=== PATIENT | female | born 1940 | race Caucasian/White ===

== ENCOUNTER → 2016-09-01 | Outpatient (CLI) | payer BC ==
--- NOTE | 2016-09-01 14:52 | MA ---
Screening Digital Mammogram With Tomosynthesis and iCAD Indication: Routine screening. Technique: Standard digital CC projections were obtained. Digital breast tomosynthesis was performed in the MLO projection with reconstruction at 1.0-mm slice thickness. Composite MLO views were recons tructed. This examination was processed by the iCAD computer-aided detection system. Comparison: May 2014, May 2013 and May 2012. Breast density: Type B. Findings: CAD was reviewed. No suspicious microcalcifications, mass, or architectural distortion. Impression: Negative mammogram BI-RADS: 1 - Negative Recommendation: Routine screening is recommended in one year. [facility] will send a result letter to the patient. Negative mammography should not preclude additional workup of a clinically suspicious finding. The patient's information is entered into a reminder system with a target due date for her next mammo gram.
== END ==
LOC: FIMAGING 11:25
DX: Z12.31 Encounter for screening mammogram for malignant neoplasm of breast (principal)
CPT/HCPCS: G0202

== ENCOUNTER 2017-08-12 06:00 | Observation (INO) | payer BC, OTHER ==
[~2017-08-12 06:00] MED LIST: ROPIVACAINE 0.2% 80 MG, EPINEPHrine 0.2 MG, KETOROLAC TROMETHAMINE 30 MG in SYRINGE 0 ML IU ONE; TRANEXAMIC ACID 3,000 MG in NS 50 ML IRR ONE
[2017-08-12] MEDS ORDERED: FAMOTIDINE 20 MG TAB PO ONE (06:09)
[2017-08-12] MEDS ORDERED: DEXAMETHASONE 4 MG/ML VIAL IVP ONE (06:09)
[2017-08-12] MEDS ORDERED: ceFAZolin 2 GM/SWFI 2 GM/20 ML SYR IVP ONE (06:09)
[2017-08-12] MEDS ORDERED: ACETAMINOPHEN 325 MG TAB PO ONE (06:09)
[2017-08-12] MEDS ORDERED: LR 1,000 ML IV ONE (06:11)
[2017-08-12] MEDS ORDERED: LIDOCAINE 1% 2 ML INJ ID PRN (06:11)
[2017-08-12] MEDS ORDERED: TRANEXAMIC ACID 3,000 MG/50 ML BAG IRR ONE (06:41)
[2017-08-12] MEDS ORDERED: VANCOMYCIN 1 GM VIAL ONE (06:41)
--- NOTE | 2017-08-12 06:57 | PDANEPAE ---
ANE History of Present Illness Knee OA ANE Past Medical History - Cardiovascular History Hx Hypertension: Yes Hx Arrhythmias: No Hx Chest Pain: No Hx Coronary Artery / Peripheral Vascular Disease: No Hx CHF / Valvular Disease: No Hx Palpitations: No Cardiovascular History Comment: stress related hypertension. - Pulmonary History Hx COPD: No Hx Asthma/Reactive Airway Disease: No Hx Recent Upper Respiratory Infection: No Hx Oxygen in Use at Home: No Hx Sleep Apnea: No Sleep Apnea Screening Result - Last Documented: Negative - Neurologic History Hx Cerebrovascular Accident: No Hx Seizures: No Hx Dementia: No - Endocrine History Hx Diabetes: No - Renal History Hx Renal Disorders: No - Liver History Hx Hepatic Disorders: No - Neurological & Psychiatric Hx Hx Neurological and Psychiatric Disorders: No - Cancer History Hx Cancer: No - Congenital Disorder History Hx Congenital Disorders: No - GI History Hx Gastrointestinal Disorders: No - Other Health History Other Health History: none - Chronic Pain History Chronic Pain: No - Surgical History Prior Surgeries: none ANE Review of Systems Review of Systems: - Exercise capacity METS (RN): 5 METS ANE Patient History - Allergies Allergies/Adverse Reactions: No Known Allergies Allergy (Verified 08/12/17 06:21) - Home Medications Home medications: home medication list seen and reviewed Home Medications: Acetaminophen/ASA/Caffeine [Excedrin Tablet (*)] 2 each PO PRN PRN 04/12/16 [ Last Taken 08/03/17] Cholecalciferol Vit D3 [Vitamin D3 2000 units tab (OTC)] 2,000 units PO DAILY [Last Taken 07/29/17] Metoprolol Tartrate [Lopressor 25 mg (*)] 12.5 mg PO HS 04/12/16 [Last Taken 22:00] Calcium Carbonate [Tums 500MG (*)] 1,000 mg PO DAILY PRN 07/09/17 [Last Taken ] Ibuprofen [Advil] 400 mg PO DAILY PRN 07/09/17 [Last Taken 08/05/17] Vit C/Vit E/Lutein/Min/[place]-3 [Ocuvite Softgel] 2 each PO DAILY 07/09/17 [Last Taken 07/29/17] diphenhydrAMINE HCL [Benadryl] 25 mg PO DAILY PRN 07/09/17 [Last Taken 08/05/17] - NPO status NPO Since - Liquids (Date): 08/12/17 NPO Since - Liquids (Time): 04:00 NPO Since - Solids (Date): 08/11/17 NPO Since - Solids (Time): 20:00 - Anes Hx Anes Hx: no prior problems - Smoking Hx Smoking Status: Never smoked - Family Anes Hx Family Hx Anesthesia Complications: none ANE Labs/Vital Signs - Vital Signs Blood Pressure: 146/81 Heart Rate: 66 Respiratory Rate: 16 O2 Sat (%): 94 Height: 162.56 cm Weight: 72.575 kg ANE Physical Exam - Airway Neck exam: FROM Mallampati Score: Class 2 Mouth exam: normal dental/mouth exam - Pulmonary Pulmonary: no respiratory distress - Cardiovascular Cardiovascular: regular rate and rhythym - ASA Status ASA Status: II ANE Anesthesia Plan Anesthesia Plan: spinal Regional Anesthesia: adductor canal FNB (Plan block in PACU)
[2017-08-12] MEDS ORDERED: MIDAZOLAM 2 MG/2 ML VIAL ONE (06:58)
[2017-08-12] MEDS ORDERED: MIDAZOLAM 2 MG/2 ML VIAL IVP ONE (06:58)
[2017-08-12] MEDS ORDERED: PROPOFOL/EMULSION 500 MG/50 ML BOTTLE IV ONE (07:06)
--- NOTE | 2017-08-12 07:08 | PDHPUP ---
History & Physical Update H&P update statement: This history and physical update is based on an assessment of the patient which was completed after admission or registration (within 24 hours), but prior to the surgery/procedure. H&P update: H&P reviewed & patient examined, no change in patient's condition since H&P completed
[2017-08-12] MEDS ORDERED: LACTULOSE 20 GM/30 ML UDCUP PO PRN (07:22)
[2017-08-12] MEDS ORDERED: POLYETHYLENE GLYCOL 3350 17 GM PKT PO PRN (07:22)
[2017-08-12] MEDS ORDERED: PROMETHAZINE HCL 25 MG SUPPR PR PRN (07:22)
[2017-08-12] MEDS ORDERED: ONDANSETRON DISINTEGRATING 4 MG TAB PO PRN (07:22)
[2017-08-12] MEDS ORDERED: TEMAZEPAM 15 MG CAP PO PRN (07:22)
[2017-08-12] MEDS ORDERED: MAGNESIUM HYDROXIDE 30 ML UDCUP PO PRN (07:22)
[2017-08-12] MEDS ORDERED: diphenhydrAMINE 25 MG CAP PO PRN (07:22)
[2017-08-12] MEDS ORDERED: DIPHENOXYLATE/ATROPINE LOMOTIL 1 TAB PO PRN (07:22)
[2017-08-12] MEDS ORDERED: PROMETHAZINE HCL 25 MG/ML INJ IVP PRN (07:22)
[2017-08-12] MEDS ORDERED: METOCLOPRAMIDE 10 MG/2 ML VIAL IVP PRN (07:22)
[2017-08-12] MEDS ORDERED: ONDANSETRON 4 MG/2 ML VIAL IVP PRN ×2 (07:22→08:28)
[2017-08-12] MEDS ORDERED: BISACODYL 10 MG SUPP PR PRN (07:22)
[2017-08-12] MEDS ORDERED: LR 1,000 ML IV SCH (07:30)
[2017-08-12] MEDS ORDERED: ROPIVACAINE HCL 150 MG/30 ML INJ ONE (07:44)
--- NOTE | 2017-08-12 08:27 | POSTOPPROG ---
Post Op Note Date of Operation: 08/12/17 Surgeon: Baudilio Hardin Quality System Manager: anmol hardin Anesthesiologist: dr. figueroa Anesthesia: Spinal, Other (Specify) (adductor canal block) Pre-op Diagnosis: Left knee OA Post-op Diagnosis: same Indication: left knee pain due to OA that failed conservative measures Procedure: L TKA Findings: severe PF OA Inf/Abcess present in the surg proc area at time of surgery?: No EBL: 50-100
[2017-08-12] MEDS ORDERED: NALOXONE HCL 0.4 MG/ML INJ IVP PRN (08:28)
[2017-08-12] MEDS ORDERED: HYDROmorphONE/DILAUDID 1 MG/ML INJ IVP PRN (08:28)
[2017-08-12] MEDS ORDERED: fentaNYL 100 MCG/2 ML INJ IVP PRN (08:28)
--- NOTE | 2017-08-12 08:47 | POSTANESTH ---
Post Anesthetic Evaluation Cardiovascular Status: Normal, Stable Respiratory Status: Normal, Stable Level of Consciousness/Mental Status: Can Participate in Eval Pain Control: Adequate, Prn Tx Ordered Nausea/Vomiting Control: Adequate, Prn Tx Ordered Complications Possibly Related to Anesthesia: None Noted (Adductor cannal block done in recovery without diff.)
[2017-08-12] MEDS: SENNOSIDES/DOCUSATE SODIUM TAB PO SCH ×2 (09:00→21:20)
[2017-08-12] MEDS: ASPIRIN 81 MG CHEWABLE TAB PO SCH ×2 (09:00→21:20)
[2017-08-12] MEDS: ACETAMINOPHEN 325 MG TAB PO SCH ×3 (11:32→23:38)
[2017-08-12] MEDS: oxyCODONE IR 5 MG TAB PO PRN ×3 (12:50→21:20)
[2017-08-12] MEDS: CYCLOBENZAPRINE 10 MG TAB PO PRN ×2 (12:50→21:20)
[2017-08-12] MEDS: ceFAZolin 2 GM/DEXTROSE 100 ML IV SCH ×2 (14:26→23:38)
[2017-08-12] MEDS ORDERED: METOPROLOL TARTRATE 25 MG TAB PO SCH (21:00)
[2017-08-12] MEDS: FAMOTIDINE 20 MG TAB PO SCH (21:20)
[2017-08-13] MEDS: oxyCODONE IR 5 MG TAB PO PRN ×3 (00:32→12:02)
--- NOTE | 2017-08-13 03:24 | GOP ---
[f rep st] OPERATIVE REPORT DATE OF OPERATION: 08/12/2017 SURGEON: Chad Duncan MD SENIOR SHAREPOINT DEVELOPER: CAROL House. ANESTHESIA: Spinal. PREOPERATIVE DIAGNOSIS: Left knee osteoarthritis. POSTOPERATIVE DIAGNOSIS: Left knee osteoarthritis. PROCEDURE PERFORMED: Left total knee replacement. FINDINGS/PATHOLOGY: Severe medial patellofemoral osteoarthritis. ESTIMATED BLOOD LOSS: 30 cc. INDICATIONS: This is a 76-year-old female with severe and progressive pain and deformity of the left knee unresponsive to conservative care. Risks and benefits of the surgical intervention were explained in detail. DESCRIPTION OF PROCEDURE: The patient was brought to the operative room and placed on the table in the supine position. Spinal anesthesia was induced without difficulty. A pneumatic tourniquet was applied about the left proximal thigh, and the leg was prepped and draped in a sterile fashion. The leg garces was applied. After exsanguination by elevation the tourniquet was inflated to 250 mm of mercury. Incision was made anterior medial from the tibial tuberosity to a point 2 cm proximal to the superior pole of the patella. Medial parapatellar arthrotomy was carried out from the superior pole of the patella and posteriorly in line with the fibers of the Type 2 VMO. The medial collateral ligament was elevated and the infrapatellar fat pad was resected. The patella was everted and the articular surface was excised. A 35 mm patellar button was placed. The distal femoral guide hole was drilled and the 6 degree alignment prema was placed. A 10 mm distal femoral cut was made without difficulty. Attention was turned to the tibia and a standard 9 mm cut based on the lateral tibial condyle was performed. The tibial articular surface was excised without difficulty. Attention was turned back to the femur and a size 4 Triathlon femoral cutting block was positioned. Anterior, posterior, and chamfer cuts were made, followed by the intercondylar box cut. The knee was extended and the remnants of the medial and lateral meniscus were excised. The posterior capsule was injected with ropivacaine, epinephrine and Toradol. A size 4 Tritanium tibial tray was positioned. Trial reduction was then carried out. There was excellent range of motion, alignment, and stability using the 11 mm polyethylene. All trials were then removed. The joint was thoroughly irrigated and carefully dried. The pressfit components were implanted. The permanent 11 mm polyethylene X3 was placed without difficulty. The tourniquet was deflated and all bleeders were coagulated. The wound was thoroughly irrigated and closed using interrupted sutures of 2-0 Vicryl for the joint capsule. The subcu was closed with 3-0 Vicryl and the skin with 4-0 Monocryl. Dermabond and Steri-Strips were applied followed by a compressive dressing. The patient was then moved from the operating room to the recovery room in good condition, having tolerated the procedure well. /[id number]/MODL MTDD
[2017-08-13] MEDS: ACETAMINOPHEN 325 MG TAB PO SCH ×2 (05:19→12:02)
[2017-08-13] MEDS: SENNOSIDES/DOCUSATE SODIUM TAB PO SCH (08:15)
[2017-08-13] MEDS: FAMOTIDINE 20 MG TAB PO SCH (08:15)
[2017-08-13] MEDS: ASPIRIN 81 MG CHEWABLE TAB PO SCH (08:15)
--- NOTE | 2017-08-13 08:56 | SOAPPROG ---
SOAP Progress Note Assessment/Plan: Assessment: Patient is doing well POD 1 s/p L TKA Pain management: pain is well controlled on oral pain meds. VTE ppx: recommend aspirin 81 mg BID for 4 weeks, cont LEE and SCDs Anemia: level is expected initially postop. Asymptomatic. Continue to monitor D/c planning: d/c to home today pending release from PT muscle spasm: recommend flexeril, will send script to pt pharmacy per O EMR system Plan: 08/13/17 08:54 08/13/17 08:55 Subjective: Justina is doing well today, denies SOB ,chest pain and N/V. patient would like script for flexeril Objective: Vital Signs Temp Pulse Resp BP Pulse Ox 36.8 C 76 16 131/59 H 94 08/13/17 07:48 08/13/17 07:48 08/13/17 07:48 08/13/17 07:48 08/13/17 07:48 Laboratory Results 08/13/17 04:46 08/13/17 04:46 08/12/17 08/13/17 08/14/17 05:59 05:59 05:59 Intake Total 2680 Output Total 1455 200 Balance 1225 -200 LLE: incision dressing is clean and dry, NVI, +pf/df ICD10 Worksheet Patient Problems: Problems Problem Status Onset Primary localized osteoarthritis of left knee Acute Chest pain Acute
--- NOTE | 2017-08-13 09:35 | GDS ---
[f rep st] DISCHARGE SUMMARY ADMISSION DIAGNOSIS: Left knee osteoarthritis. DISCHARGE DIAGNOSIS: Left knee osteoarthritis. PROCEDURE: Left total knee arthroplasty. VTE PROPHYLAXIS: Recommend aspirin 81 mg twice daily for 4 weeks. BRIEF DESCRIPTION OF HOSPITAL STAY: Patient was admitted for an elective joint arthroplasty. The pa tient tolerated the procedure well and has passed physical therapy. The patient was given appropriat e antibiotic prophylaxis and venous thromboembolism prophylaxis. The patient's pain was well control led on oral pain medication, patient was holding down food, and had urinated. Decision was made to d ischarge the patient. The patient was given post-operative prescriptions pre-operatively. PLAN: To follow up as scheduled in Dr. Duncan's office September 03 at 10:30 a.m. /[id number]/MODL
[2017-08-13 11:37] VITALS: BP 132/81; RESP 18; TEMP 97.5
--- NOTE | 2017-08-13 14:01 | ASDISCHSUM ---
Discharge Information Plan Status:Home with No Needs Medically Cleared to Leave: Discharge Date:08/13/2017 12:44 PM CM D/C Disposition:Home, Routine, Self-Care ADT D/C Disposition:Home, Routine, Self-Care Projected Discharge Date:08/13/2017 12:44 PM Transportation at D/C: Discharge Delay Reason: Follow-Up Date:08/13/2017 12:44 PM Discharge Slot: Final Diagnosis: Placement Information Patient Contact Information Contact Name:RICARDO Relationship:Daughter Address: Work Phone: City: [facility] Phone: State/Zip Code: Email: Financial Information Financial Class:HMO and PPO Plans Primary Plan Desc:[employer] Primary Plan Number:[id number] Secondary Plan Desc: Secondary Plan Number: Assessment Information Intervention Information Intervention Type:*Incorrect Registration Date of Service:08/12/2017 03:20 PM Patient Type:Inpatient Staff Member:VIVIANE Seals Courtney Hours: Discipline: Severity: Comment:
[2017-08-13 15:31] VITALS: PULSE 82; O2SAT 94
== END 2017-08-13 12:44 | disposition home or self-care (01) ==
LOC: F3N 06:00 → INTOOBSV 06:00 → F3N 09:35
PROVIDERS: ADMIT Orthopaedic Surgery; ATTEND Orthopaedic Surgery
PROC: 0SRD0JA Replacement of Left Knee Joint with Synthetic Substitute, Uncemented, Open Approach (ICD-10-PCS; principal; 2017-08-12 07:15)
DX: M17.12 Unilateral primary osteoarthritis, left knee (principal); M25.562 Pain in left knee
CPT/HCPCS: 27447; 73560; 97110; 97116; 97161; 97165; 97530; G0378; G8978; G8979; G8980; G8987; G8988; G8989; J0171; J0690; J1100; J1885; J2250; J2704; J2795; J3370

== ENCOUNTER 2017-10-08 12:53 | Emergency (ER) | payer BC ==
[2017-10-08 13:01] VITALS: BP 179/99; PULSE 77; RESP 16; TEMP 98.1; O2SAT 98
--- NOTE | 2017-10-08 13:09 | EDPHY ---
H & P Stated Complaint: from US, LLE DVT Time Seen by Provider: 10/08/17 13:03 - Personal History Current Tetanus/Diphtheria Vaccine: Yes Current Tetanus Diphtheria and Acellular Pertussis (TDAP): Yes - Medical/Surgical History Hx Asthma: No Hx Chronic Respiratory Disease: No Hx Diabetes: No Hx Cardiac Disease: No Hx Renal Disease: No Hx Cirrhosis: No Hx Alcoholism: No Hx HIV/AIDS: No Hx Splenectomy or Spleen Trauma: No Other PMH: cholecystectomy/Tubal/Appy/L knee replacement - Social History Smoking Status: Never smoked Constitutional: Initial Vital Signs Temperature (C) 36.7 C 10/08/17 12:58 Heart Rate 77 10/08/17 12:58 Respiratory Rate 16 10/08/17 12:58 Blood Pressure 179/99 H 10/08/17 12:58 O2 Sat (%) 98 10/08/17 12:58 O2 Delivery Mode Room Air Allergies/Adverse Reactions: No Known Allergies Allergy (Verified 10/08/17 12:57) Home Medications: Medication Instructions Recorded Rivaroxaban [Xarelto 15mg (*)] 15 mg PO BID #42 tab 10/08/17 Rivaroxaban [Xarelto] 20 mg PO DAILY #67 tab 10/08/17 Medical Decision Making - Diagnostics Imaging Results: Imaging Impressions Extremity Venous Study 10/08/17 11:15 Impression: Extensive DVT throughout the left lower extremity with some recanalization. The age of this thrombus is indeterminate. Findings discussed with Ana Duncan at 12:17 hour, 10/08/2017. ED Course/Re-evaluation: CHIEF COMPLAINT: DVT HISTORY OF PRESENT ILLNESS: The patient is a 76 y/o female 8 weeks post-op for a left knee replacement presenting with lower left leg swelling and an ultrasound indicating a DVT. Her foot and calf swelled following the surgery. After a few weeks the foot swelling decreased but the calf remained swollen, prompting her ultrasound. She was then sent over by ultrasound, after her imaging showed a DVT. She denies shortness of breath, chest pain, or any other associated symptoms. She denies history of DVT, pulmonary embolism, or any other pertinent medical history. REVIEW OF SYSTEMS: A 10 point review of systems was performed and is negative with the exception of the elements mentioned in the history of present illness. PHYSICAL EXAM: HR, BP, O2 Sat, RR. Temp noted General Appearance: Alert, well hydrated, appropriate, and non-toxic appearing. Respiratory: No retractions, no distress, no wheezes, and no accessory muscle use. Lungs are clear to auscultation bilaterally. Cardiovascular: Regular rate and rhythm, no murmurs, rubs, or gallops. Bilateral carotid, radial, dorsalis pedis, and posterior tibial pulses intact. Good capillary refill all extremities. Gastrointestinal: Abdomen is soft, nontender, non-distended, no masses, no rebound, no guarding, no peritoneal signs. Musculoskeletal: Edema and erythema in the lower leg. Normal active ROM of all extremities. Neurological: Alert, appropriate, and interactive. Grossly non-focal. Skin: No rashes, good turgor, no nodules on palpation. Past medical history: Denies Past surgical history: Left knee replacement 8 weeks ago Family history: Non-contributory Social history: Daughter at bedside, lives in [place], [facility] DIFFERENTIAL DIAGNOSIS: The differential diagnosis for the patient's leg swelling included but was not limited to DVT, hypoalbuminemia, congestive heart failure, cor pulmonale, venous stasis, and trauma. MEDICAL DECISION MAKING: The patient is a 76 y/o female presenting with edema of the left calf and an ultrasound indicating DVT in left lower extremity following a left knee replacement 8 weeks ago. Since the surgery, her left leg and foot have been swollen with left foot improving and left calf remaining swollen. After 8 weeks, an ultrasound was ordered by her surgeon, Dr. Duncan. Ultrasound indicates extensive DVT in lower left extremity. She denies chest pain, shortness of breath, or any other associated symptoms. She denies relevant medical history. Due to the patient's imaging and symptoms, I do not feel further intervention is necessary at this time. She will be released on 15mg Xarelto twice daily for 21 days with 20 mg once daily for the remainder until 3 months of anticoagulation has been completed. I informed her of some of the dangers of anticoagulation, including avoiding trauma. She agrees to this course of action. Study: Ultrasound of the: Lower left extremity Indication: Swelling for 8 weeks post-op Results: US scan of the body parts was obtained. The results of the study indicate DVT. The study was read by the radiologist, Dr. Slater. Departure - Departure Disposition: Home, Routine, Self-Care Clinical Impression: DVT (deep venous thrombosis) Qualifiers: DVT location: lower extremity Affected thrombotic vein of extremity: unspecified vein of extremity Chronicity: unspecified Laterality: left Qualified Code(s): I82.402 - Acute embolism and thrombosis of unspecified deep veins of left lower extremity Condition: Good Instructions: Deep Vein Thrombosis (ED) Additional Instructions: 1. Please take Xarelto 15mg twice a day (morning and evening) for three weeks. After 3 weeks, take 20 mg of Xarelto once per day until three months total has been reached. 2. Follow-up with your primary care provider. 3. Return to the emergency department for shortness of breath, chest pain, or any other worsening of condition. Referrals: Misa Young MD [Primary Care Provider] - As per Instructions Prescriptions: Rivaroxaban [Xarelto 15mg (*)] 15 mg PO BID #42 tab Rivaroxaban [Xarelto] 20 mg PO DAILY #67 tab Report Scribed for: Mitch Carroll Report Scribed by: Erika Mariee Date of Report: 10/08/17 Time of Report: 13:32
== END 2017-10-08 13:55 | disposition home or self-care (01) ==
DX: I82.402 Acute embolism and thrombosis of unspecified deep veins of left lower extremity (principal)

== ENCOUNTER → 2018-12-21 | Outpatient (CLI) | payer BC | LOC: FIMAGING 12:29 | PROVIDERS: ATTEND Internal Medicine | DX: Z12.31 Encounter for screening mammogram for malignant neoplasm of breast (principal); R92.8 Other abnormal and inconclusive findings on diagnostic imaging of breast ==

== ENCOUNTER → 2018-12-24 | Outpatient (CLI) | payer BC | LOC: FIMAGING 13:21 ==